=== PATIENT | female | born 1990 | race Caucasian/White ===

== ENCOUNTER 2018-09-14 03:22 | Emergency (ER) | payer MEDICAID ==
--- NOTE | 2018-09-14 03:54 | EDM.PDOC ---
ED HPI GENERAL MEDICAL PROBLEM - General Chief Complaint: Upper Extremity Injury/Pain Stated Complaint: SPRAINED LEFT WRIST Time Seen by Provider: 09/14/18 03:22 Source of Information: Reports: Patient, Family History Limitations: Reports: No Limitations - History of Present Illness INITIAL COMMENTS - FREE TEXT/NARRATIVE: 28 y.o.wjose came this am to the ed because she noticed pain at her left wrist after she was lifting a box at home yesterday. No trauma, pt has FROM of her left wrist but is hurts a "little". No N/V/D no Dizziness no CP or any other acute med issues. BP RR 17 Pulse ox 98% on RA Temp 36.4 Pulse 65 Onset Date: 09/13/18 Onset Time: 08:00 Duration: Day(s):, Constant, Intermittent Location: Reports: Upper Extremity, Left (wrist, no trauma) Quality: Reports: Ache, Dull Severity: Mild Improves with: Reports: Rest Worsens with: Reports: Movement Context: Reports: Other (lifting a box) Associated Symptoms: Reports: No Other Symptoms Treatments [employer]: Reports: NSAIDS left wrist Pain Score (Numeric/FACES): 7 - Related Data Allergies Allergy/AdvReac Type Severity Reaction Status Date / Time clindamycin Allergy Hives Verified 09/14/18 03:29 sulfamethoxazole Allergy Hives Verified 09/14/18 03:29 [From Bactrim] trimethoprim [From Bactrim] Allergy Hives Verified 09/14/18 03:29 Home Meds: Home Meds Sertraline [Zoloft] 100 mg PO DAILY 09/14/18 [History] Past Medical History - Past Health History Medical/Surgical History: Denies Medical/Surgical History Social & Family History - Family History Family Medical History: Noncontributory - Tobacco Use Smoking Status *Q: Current Every Day Smoker Years of Tobacco use: 8 Packs/Tins Daily: 0.5 - Caffeine Use Caffeine Use: Reports: Soda - Recreational Drug Use Recreational Drug Use: No Review of Systems - Review of Systems Review Of Systems: See Below Constitutional: Reports: No Symptoms Eyes: Reports: No Symptoms Ears: Reports: No Symptoms Nose: Reports: No Symptoms Mouth/Throat: Reports: No Symptoms Respiratory: Reports: No Symptoms Cardiovascular: Reports: No Symptoms GI/Abdominal: Reports: No Symptoms Genitourinary: Reports: No Symptoms Musculoskeletal: Reports: Other (left wrist pain with movement) Skin: Reports: No Symptoms Neurological: Reports: No Symptoms Psychiatric: Reports: No Symptoms ED EXAM, GENERAL - Physical Exam Exam: See Below Exam Limited By: No Limitations General Appearance: Alert, WD/WN, Mild Distress Eye Exam: Bilateral Eye: Normal Inspection Ears: Normal External Exam Ear Exam: Bilateral Ear: Auricle Normal Nose: Normal Inspection, Normal Mucosa, No Blood Throat/Mouth: Normal Inspection, Normal Lips, Normal Teeth, Normal Gums Head: Atraumatic, Normocephalic Neck: Normal Inspection, Supple, Non-Tender, Full Range of Motion Respiratory/Chest: No Respiratory Distress, Lungs Clear, Normal Breath Sounds, No Accessory Muscle Use, Chest Non-Tender Cardiovascular: Normal Peripheral Pulses, Regular Rate, Rhythm, No Edema, No Gallop, No JVD, No Murmur, No Rub Peripheral Pulses: 1+: Brachial (R) GI/Abdominal: Normal Bowel Sounds, Soft, Non-Tender, No Organomegaly, No Mass, Pelvis Stable (Female) Exam: Deferred Rectal (Female) Exam: Deferred Back Exam: Normal Inspection, Full Range of Motion Extremities: Normal Inspection, Limited Range of Motion (left wrist) Neurological: Alert, Oriented, CN II-XII Intact, Normal Cognition, Normal Gait Psychiatric: Normal Affect, Normal Mood Skin Exam: Warm, Dry, Intact, Normal Color, No Rash Lymphatic: No Adenopathy Course - Vital Signs Text/Narrative:: 28 y.o.w.f came this am to the ed because she noticed pain at her left wrist after she was lifting a box at home yesterday. No trauma, pt has FROM of her left wrist but is hurts a "little". No N/V/D no Dizziness no CP or any other acute med issues. BP RR 17 Pulse ox 98% on RA Temp 36.4 Pulse 65 PE: WNWD W F with left wrist discomfort, no trauma Imaging: Not indicated Impression: Left wrist sprain Tx: Velcro splint, Ice. Pt too Motrin [employer] STORE CHECK[employer] Reexam: Improved Plan: D/C with instructions Last Recorded V/S: Last Vital Signs Temp 36.4 C 09/14/18 03:22 Pulse 65 09/14/18 03:22 Resp 17 09/14/18 03:22 BP 111/78 09/14/18 03:22 Pulse Ox 98 09/14/18 03:22 Departure - Departure Time of Disposition: 03:50 Disposition: Home, Self-Care 01 Condition: Good Clinical Impression: Left wrist sprain Qualifiers: Encounter type: initial encounter Qualified Code(s): S63.502A - Unspecified sprain of left wrist, initial encounter - Discharge Information Instructions: Wrist Sprain, Adult Referrals: PCP,None [Primary Care Provider] - Forms: ED Department Discharge, ED Return to Work/School Form Additional Instructions: Rest, Ice and elevation, Motrin for pain, please wear left wrist splint, please f/u, come back if your symptoms get worse acutely
== END 2018-09-14 03:57 | disposition home or self-care (01) ==
LOC: FB.ED 03:22
DX: S63.502A Unspecified sprain of left wrist, initial encounter (principal); Z88.1 Allergy status to other antibiotic agents; Z88.2 Allergy status to sulfonamides; F17.210 Nicotine dependence, cigarettes, uncomplicated; X50.0XXA Overexertion from strenuous movement or load, initial encounter
CPT/HCPCS: 99283

== ENCOUNTER 2022-09-16 21:33 | Emergency (ER) | payer MEDICAID, OTHER | END 2022-09-16 23:10 | disposition home or self-care (01) | LOC: FB.ED 21:33 | DX: Z32.01 Encounter for pregnancy test, result positive (principal); Z88.1 Allergy status to other antibiotic agents; Z72.0 Tobacco use | CPT/HCPCS: 36415; 84702; 99282 ==

== ENCOUNTER 2023-07-07 05:59 | Emergency (ER) | payer OTHER ==
[2023-07-07] MEDS: Acetaminophen/HYDROcodone 325-5 MG Tab PO ONE (06:24)
== END 2023-07-07 07:22 | disposition home or self-care (01) ==
LOC: FB.ED 05:59
DX: K08.89 Other specified disorders of teeth and supporting structures (principal); K04.7 Periapical abscess without sinus; F17.210 Nicotine dependence, cigarettes, uncomplicated; Z88.1 Allergy status to other antibiotic agents; Z88.2 Allergy status to sulfonamides
CPT/HCPCS: 99282; A9270-GY

== ENCOUNTER 2023-11-18 22:38 | Emergency (ER) | payer OTHER | END 2023-11-19 00:33 | disposition left against medical advice (07) | LOC: FB.ED 22:38 | DX: O99.612 Diseases of the digestive system complicating pregnancy, second trimester (principal); K04.7 Periapical abscess without sinus; O99.332 Smoking (tobacco) complicating pregnancy, second trimester; F17.200 Nicotine dependence, unspecified, uncomplicated; Z79.899 Other long term (current) drug therapy; Z88.8 Allergy status to other drugs, medicaments and biological substances; Z88.2 Allergy status to sulfonamides; Z88.1 Allergy status to other antibiotic agents; Z3A.26 26 weeks gestation of pregnancy | CPT/HCPCS: 99283 ==